=== PATIENT | female | born 1990 | race Caucasian/White ===

== ENCOUNTER 2016-12-31 01:25 | Inpatient (IN) | payer BC ==
[2016-12-31 02:21] VITALS: BMI 32.5
[2016-12-31] MEDS: ELECTROLYTE-148 SOLN 1,000 ML IV SCH ×2 (02:45→06:50)
[2016-12-31 03:15] LABS: BASOPHIL 0.2 % (0-2.0); EOSINOPHIL 0.9 % (0-4.5); MCH 31.5 pg (25.7-33.7); MCHC 33.7 g/dl (32.0-36.0); MEAN CELL VOLUME 93.5 fl (80-96); MEAN PLT VOLUME 8.3 fl (7.5-11.1); NEUTROPHILS 70.7 % (42.8-82.8); PLATELET COUNT 159 K/MM3 (134-434); RDW 13.1 % (11.6-15.6); WHITE BLOOD COUNT 9.5 K/mm3 (4.0-10.0)
[2016-12-31 03:27] LABS: INR 0.91 (0.82-1.09)
[2016-12-31 03:29] LABS: ACTIVATED PTT 26.8 SECONDS (26.9-34.4)
[2016-12-31] MEDS ORDERED: BUTORPHANOL TARTRATE 1 MG/ML VIAL IVPB ONE (03:30)
[2016-12-31] MEDS ORDERED: PROMETHAZINE HCL 25 MG/1 ML VIAL IVPB ONE (03:30)
[2016-12-31 03:33] LABS: CALCIUM 8.7 mg/dL (8.5-10.1); CREATININE 0.5 mg/dL (0.55-1.02)
[2016-12-31 03:49] LABS: HIV 1 & 2 AB NEGATIVE; HIV 1 AGp24 NEGATIVE
[2016-12-31] MEDS ORDERED: FENTANYL/BUPIVACAINE/NS/PF - PCEA - 50 ML DISP.SYRIN EP SCH (07:15)
[2016-12-31] MEDS ORDERED: OXYTOCIN 15 UNITS/ LR 250 ML 250 ML IVPB SCH (10:15)
[2016-12-31] MEDS ORDERED: DEXTROSE 5%-LACTATED RINGERS 1,000 ML IV SCH (10:15)
--- NOTE | 2016-12-31 10:21 | HP ---
Past Medical History - Primary Care Physician PCP:: Carson Stiles - Admission Chief Complaint: 26 yo P1 with at EGA 39w4d and SROM since 12:30am, admitted in spontaneous labor. History of Present Illness: Uncomplicated care. Vag GBS (-) History Source: Patient, Medical Record Limitations to Obtaining History: No Limitations - Past Medical History SURVEYOR HYDROGRAPHIC: No: Alzheimer's, CVA, Dementia, Migraine, Multiple Sclerosis, Peripheral Neuropathy, Parkinson's, Seizure, Syncope, TIA, Vertigo, Other Cardiovascular: No: AFIB, Aneurysm, Aortic Insufficiency, Aortic Stenosis, CAD, CHF, Deep Vein Thrombosis, HTN, Hyperlipdemia, VA, Mitral Insufficiency, Mitral Stenosis, Murmur, Pulmonary Hypertension, Other Pulmonary: No: Asthma, Bronchitis, Cancer, COPD, O2 Dependent, Pneumonia, Previously Intubated, Pulmonary Embolus, Pulmonary Fibrosis, Sleep Apnea, Other Gastrointestinal: No: Ascites, Cancer, Constipation, Crohn's Disease, Diverticulitis, Diverticulosis, Esophageal Varices, Gastritis, GERD, GI Bleed, Hemorrhoids, Hiatal Hernia, Inflamatory Bowel Disease, Irritable Bowel Disease, Pancreatitis, Peptic Ulcer Disease, Ulcerative Colitis, Other Hepatobiliary: No: Cirrhosis, Cholelithiasis, Cholecystitis, Choledocholithiasis , Hepatitis A, Hepatitis B, Hepatitis C, Other Renal/: No: Renal Failure, Renal Inusuff, BPH, Cancer, Hematuria, Hemodialysis , Neurogenic Bladder, Renal Calculi, UTI, Other Reproductive: No: Ectopic , Endometriosis, Fibroids, PID, Polycystic Ovary Syndrome, Postmenopausal, Other ...: 2 ...Para: 1 () ...Term: 1 ...: 0 ...Spon : 0 ...Induced : 0 ...Multiple Gestation: 0 ...LMP: 03/29/16 ... Weeks Gestation by Dates: 39.4 ...EDC by Dates: 01/03/17 ...EDC by Sono: 12/30/16 Heme/Onc: No: Anemia, B12 Deficiency, Bleeding Disorder, Cancer, Current Chemotherapy, Current Radiation Therapy, Hemochromatosis, Hypercoaguable State, Myeloproliferative Synd, Sickle Cell Disease, Sickle Cell Trait, Thrombocytopenia, Other Infectious Disease: No: AIDS, C-Diff, Herpes Zoster, HIV, MRSA, STD's, Tuberculosis, VREF, Other Psych: Yes: Anxiety Musculoskeletal: No: Bursitis, Chronic low back pain, Hemiparesis, Hemiplegia, Osteoarthritis, Paraplegia, Other Rheumatology: No: Fibromyalgia, Gout, Lupus, Rheumatoid Arthritis, Sarcoidosis, Vasculitis, Other ENT: No: Allergic Rhinitis, Sinusitis, Other Endocrine: No: Alan's Disease, Glendora's Disease, Diabetes Insipidus, Diabetes Mellitus, Hyperparathyroidism, Hyperthyroidism, Hypothyroidism, Osteopenia, SIADH, Other Dermatology: No: Basal Cell, Cellulitis, Eczema, Melanoma, Psoriasis, Squamous Cell, Other - Past Surgical History Past Surgical History: Yes: Tonsillectomy Hx Myomectomy: No Hx Transabdominal Cerclage: No - Smoking History Smoking history: Former smoker Have you smoked in the past 12 months: No - Alcohol/Substance Use Hx Alcohol Use: No History of Substance Use: reports: None - Social History Usual Living Arrangement: Yes: Alone ADL: Independent Occupation: Early intervention instructor History of Recent Travel: No Home Medications - Allergies Allergies/Adverse Reactions: Allergies Allergy/AdvReac Type Severity Reaction Status Date / Time No Known Allergies Allergy Verified 12/31/16 02:13 - Home Medications Home Medications: Ambulatory Orders Vitamins (Sjr) - 1 tab PO DAILY #0 tablet 06/23/15 Family Disease History - Family Disease History Family Disease History: CA: Grandparent (Endometrial) Review of Systems - Review of Systems Constitutional: reports: No Symptoms Eyes: reports: No Symptoms HENT: reports: No Symptoms Neck: reports: No Symptoms Cardiovascular: reports: No Symptoms Respiratory: reports: No Symptoms Gastrointestinal: reports: No Symptoms Genitourinary: reports: No Symptoms Breasts: reports: No Symptoms Reported Musculoskeletal: reports: No Symptoms Integumentary: reports: No Symptoms Neurological: reports: No Symptoms Endocrine: reports: No Symptoms Hematology/Lymphatic: reports: No Symptoms Psychiatric: reports: No Symptoms Pain Intensity: 0 (s/p Epidural) Physical Exam - Maternity Vital Signs: Vital Signs Temperature 98.9 F 12/31/16 09:42 Pulse Rate 96 H 12/31/16 09:05 Respiratory Rate 18 12/31/16 09:05 Blood Pressure 101/59 12/31/16 09:05 O2 Sat by Pulse Oximetry (%) 98 12/31/16 09:05 Constitutional: Yes: Well Nourished, No Distress, Calm Eyes: Yes: WNL, Conjunctiva Clear HENT: Yes: WNL, Atraumatic, Normocephalic Neck: Yes: WNL, Supple, Trachea Midline Cardiovascular: Yes: WNL, Regular Rate and Rhythm Lungs: Clear to auscultation, Normal air movement - Abdominal Exam/OB Fundal Height: 39 Number of Fetuses: Single Presentation: Vertex Contractions: Yes Regularity: Irregular (q5-7min) Intensity: Mild/Mod Monitor Mode: External Heart Rate (range): 160 Heart Rate Location: Midline Category: II Accelerations: Non-Uniform Decelerations: Variable - Vaginal Exam/OB Vaginal Bleediing: No Speculum Exam: No Dilatation (cm): 4 Effacement (%): 90 Amniotic Membrane Status: Leaking Amniotic Fluid: Yes: Clear Presentation: Vertex/Position Station: -1 (Adequate gynecoid pelvimetry) - Physical Exam Musculoskeletal: Yes: WNL Extremities: Yes: WNL Edema: Yes Edema: LLE: Trace, RLE: Trace Integumentary: Yes: WNL Deep Tendon Reflex Grade: Normal +2 ...Motor Strength: WNL Psychiatric: Yes: WNL, Alert, Oriented - Labs Lab Results: CBC, BMP 12/31/16 02:45 12/31/16 02:45 Hemorrhage Risk Assessment - Risk Factors Medium Risk Factors: Yes: None High Risk Factors: Yes: None Risk Score: 1 Risk Level: Medium Risk Imaging - Results Ultrasound: Report Reviewed Assessment/Plan 26 yo P1 with at EGA 39w4d and SROM since 12:30am, admitted in spontaneous labor. The RN exam at 7:15am was 4cm of cervical dilation and is still the same now. Arrest of dilation was diagnosed. Plan to augment contractions with Pitocin. Fetus does not require intervention. Monitor labor progress.
[2016-12-31] MEDS ORDERED: WITCH HAZEL 50% (TUCKS) 40 PAD/JAR PAD TP PRN (14:42)
[2016-12-31] MEDS ORDERED: METHYLERGONOVINE MALEATE 0.2 MG/1 ML AMP IM PRN (14:42)
[2016-12-31] MEDS ORDERED: BENZOCAINE 20% 57 GM BOTTLE TP PRN (14:42)
[2016-12-31] MEDS ORDERED: BENZOCAINE 28 GM HEMORRHOIDAL OINTMENT TP PRN (14:42)
[2016-12-31] MEDS ORDERED: BISACODYL 10 MG SUPP.RECT RC PRN (14:42)
[2016-12-31] MEDS ORDERED: D5W-LR W/ 20 UNITS OXYTOCIN 1,000 ML IV SCH (14:45)
--- NOTE | 2016-12-31 14:57 | PN ---
Delivery - Delivery Vaginal Delivery: No Problems, Spontaneous Type of Anesthesia: Epidural Episiotomy/Laceration: None EBL (cc): 300 Delivery, Single - Stages of Labor Date 1st Stage Initiatied: 12/31/16 Time 1st Stage Initiated: 01:00 Date 2nd Stage Initiated: 12/31/16 Time 2nd Stage Initiated: 13:45 Date of Delivery: 12/31/16 Time of Delivery: 14:10 Date Placenta Delivered: 12/31/16 Time Placenta Delivered: 14:15 Placenta: Yes: Spontaneous, Normal Configuration - Condition of Infant Va Underwriter/Park Maintenance Technician Present: No Gender: Male Position: Right, OA Total Hours ROM (Hrs/Mins): 13 hours 45 minutes - 1 Minute Total Score: 9 5 Minutes Total Score: 9 - Feeding Plan Initial Plan: Exclusive throughout hospitalization Remarks - Remarks Remarks: Normal labor and delivery
[2017-01-01 08:52] LABS: BASOPHIL 0.1 % (0-2.0); EOSINOPHIL 1.3 % (0-4.5); MCH 31.6 pg (25.7-33.7); MCHC 33.6 g/dl (32.0-36.0); MEAN CELL VOLUME 94.1 fl (80-96); MEAN PLT VOLUME 8.3 fl (7.5-11.1); NEUTROPHILS 73.7 % (42.8-82.8); PLATELET COUNT 142 K/MM3 (134-434); RDW 13.8 % (11.6-15.6); WHITE BLOOD COUNT 9.6 K/mm3 (4.0-10.0)
[2017-01-01] MEDS: PRENATAL VITAMINS W/ FOLIC ACID TABLET (FP) PO SCH (09:44)
--- NOTE | 2017-01-01 21:15 | PN ---
Post Progress Note - Subjective Subjective: No complaints Post Day: 1 Type of Delivery: Vital Signs: Vital Signs Temperature 98.2 F 01/01/17 20:51 Pulse Rate 86 01/01/17 20:51 Respiratory Rate 18 01/01/17 20:51 Blood Pressure 125/68 01/01/17 20:51 O2 Sat by Pulse Oximetry (%) 98 12/31/16 13:50 Breast Exam: Yes: Soft Uterus: Yes: Fundus Firm, Fundus below umbilicus, Non-tender Abdomen/GI: Yes: Abdomen soft, Passing flatus, Tolerating PO Lochia: Yes: Rubra Lochia, amount: Small Extremities: Yes: Calves non-tender Perineum: Yes: Intact Activity: Ambulating - Labs Labs: CBC WBC 9.6 K/mm3 (4.0-10.0) 01/01/17 07:50 RBC 3.43 M/mm3 (3.60-5.2) L 01/01/17 07:50 Hgb 10.8 GM/dL (10.7-15.3) 01/01/17 07:50 Hct 32.2 % (32.4-45.2) L 01/01/17 07:50 MCV 94.1 fl (80-96) 01/01/17 07:50 MCHC 33.6 g/dl (32.0-36.0) 01/01/17 07:50 RDW 13.8 % (11.6-15.6) 01/01/17 07:50 Plt Count 142 K/MM3 (134-434) 01/01/17 07:50 MPV 8.3 fl (7.5-11.1) 01/01/17 07:50 Neutrophils % 73.7 % (42.8-82.8) 01/01/17 07:50 Lymphocytes % 18.1 % (8-40) 01/01/17 07:50 Monocytes % 6.8 % (3.8-10.2) 01/01/17 07:50 Eosinophils % 1.3 % (0-4.5) 01/01/17 07:50 Basophils % 0.1 % (0-2.0) 01/01/17 07:50 Problem List - Problems (1) Normal vaginal delivery Assessment/Plan: 26yo P2 s/p , doing well stable, afebrile. care instructions reviewed. Continue routine care. Ambulation encouraged Discharge instruction reviewed. Code(s): O80 - ENCOUNTER FOR FULL-TERM UNCOMPLICATED DELIVERY
[2017-01-01] MEDS ORDERED: SENNOSIDES/DOCUSATE COMBO (SENNA PLUS) TABLET (UD) PO PRN (22:00)
[2017-01-01] MEDS: ACETAMINOPHEN 325 MG TABLET (FP) PO PRN (23:17)
[2017-01-01] MEDS: IBUPROFEN 600 MG TABLET (FP) PO PRN (23:18)
[2017-01-02 09:36] VITALS: BP 120/65; PULSE 85; TEMP 98.7
[2017-01-02] MEDS: PRENATAL VITAMINS W/ FOLIC ACID TABLET (FP) PO SCH (09:54)
[2017-01-02] MEDS: IBUPROFEN 600 MG TABLET (FP) PO PRN (09:55)
[2017-01-02] MEDS: ACETAMINOPHEN 325 MG TABLET (FP) PO PRN (09:56)
== END 2017-01-02 11:00 | disposition home or self-care (01) | DRG 775 ==
LOC: JLDR 01:25 → UNDOADMIN 01:25 → J3W 15:47
PROVIDERS: ADMIT Obstetrics & Gynecology; ATTEND Obstetrics & Gynecology
PROC: 10E0XZZ Delivery of Products of Conception, External Approach (ICD-10-PCS; principal; 2016-12-31)
DX: O80 Encounter for full-term uncomplicated delivery (principal); Z3A.39 39 weeks gestation of pregnancy; Z37.0 Single live birth
CPT/HCPCS: 36415; 59409; 80048; 85025; 85610; 85730; 86593; 86850; 86900; 86901; 87389

== ENCOUNTER 2017-10-11 21:43 | Emergency (ER) | payer BC ==
[2017-10-11 21:51] VITALS: TEMP 98.5; BMI 25.1
--- NOTE | 2017-10-11 21:51 | PDOC ---
Rapid Medical Evaluation Time Seen by Provider: 10/11/17 21:45 Medical Evaluation: Allergies Allergy/AdvReac Type Severity Reaction Status Date / Time No Known Allergies Allergy Verified 12/31/16 02:13 10/11/17 21:45 I have performed a brief in-person evaluation of this patient. The patient presents with a chief complaint of: pain to RUQ "right below ribs, with shooting to R neck/head" since this am, worsening with inspiration and supine position, +chills, +SOB, previously on OCP hasn't taken in 5 days, denies NVD Pertinent physical exam findings: HR 108, lungs CTAB I have ordered the following: cxr, ekg, urine preg, ua, uc The patient will proceed to the ED for further evaluation. Discharge Disposition - Referrals Referrals: Mercedes Gonsalez MD [Primary Care Provider] - - Patient Instructions - Post Discharge Activity
[2017-10-11 22:38] LABS: URINE APPEARANCE CLEAR; URINE BILIRUBIN NEGATIVE (NEGATIVE); URINE BLOOD NEGATIVE (NEGATIVE); URINE COLOR LTYELLOW; URINE GLUCOSE (UA) NEGATIVE (NEGATIVE); URINE KETONE NEGATIVE (NEGATIVE); URINE NITRITE NEGATIVE (NEGATIVE); URINE PROTEIN NEGATIVE (NEGATIVE); URINE UROBILINOGEN NEGATIVE mg/dL (0.2-1.0)
--- NOTE | 2017-10-11 23:31 | PDOC ---
History of Present Illness - General Chief Complaint: Chest Pain Stated Complaint: PAIN Time Seen by Provider: 10/11/17 21:45 - History of Present Illness Initial Comments: 10/12/17 02:39 Patient is a 27 year old female with no significant past medical history who presents to the ED with complaints of chest pain that began this morning. Patient reports chest pain began this morning at home while she was resting and is located on the R side of her chest, radiating up and down her R chest. Patient reports intermittent episodes of SOB, stating "she felt she could not exhale or inhale fully. She reports experiencing intermittent episodes of chills, subjective fever and generalized headache of gradual onset. In addition , she states she has bodyaches all over but more so on the R side. She reports having 2 children who have been sick on and off for the last 2 weeks. Patient reports her last menstrual period was 2 weeks ago and is on control, but states she has not been on it for the last 5 days because her insurance no longer covers it. Denies recent travel/immobility. Denies dysuria, constipation, diarrhea. Denies any trauma to affected area. Denies sore throat. Denies focal weakness/numbness , visual sxs, rashes. Allergies: None Social history: Lives with spouse and 2 children. Current smoker (3 cigarettes per day). No alcohol. No illicit drugs. Surgical history: Tonsillectomy (as child) PMD: Dr. Gonsalez Past History - Past Medical History Allergies/Adverse Reactions: Allergies Allergy/AdvReac Type Severity Reaction Status Date / Time No Known Allergies Allergy Verified 10/12/17 00:13 Home Medications: Ambulatory Orders Vitamins (Sjr) - 1 tab PO DAILY #0 tablet 06/23/15 Asthma: No Cancer: No Cardiac Disorders: No Diabetes: No HTN: No Seizures: No Thyroid Disease: No - Immunization History Immunization Up to Date: Yes - Suicide/Smoking/Psychosocial Hx Smoking History: Current every day smoker Have you smoked in the past 12 months: Yes Number of Cigarettes Smoked Daily: 3 Information on smoking cessation initiated: No 'Breaking Loose' booklet given: 06/03/14 Hx Alcohol Use: No Drug/Substance Use Hx: No Substance Use Type: None Hx Substance Use Treatment: No Review of Systems - Review of Systems Comments:: 10/12/17 02:46 GENERAL/CONSTITUTIONAL: +Chills. +Subjective fever. No weakness. HEAD, EYES, EARS, NOSE AND THROAT: No change in vision. No ear pain or discharge. No sore throat. GASTROINTESTINAL: No nausea, vomiting, diarrhea or constipation. GENITOURINARY: No dysuria, frequency, or change in urination. CARDIOVASCULAR: +Chest pain. +SOB RESPIRATORY: No cough, wheezing, or hemoptysis. MUSCULOSKELETAL: +bodyaches SKIN: No rash NEUROLOGIC: No headache, vertigo, loss of consciousness, or change in strength/ sensation. ENDOCRINE: No increased thirst. No abnormal weight change. HEMATOLOGIC/LYMPHATIC: No anemia, easy bleeding, or history of blood clots. ALLERGIC/IMMUNOLOGIC: No hives or skin allergy. *Physical Exam - Vital Signs Last Vital Signs Temp Pulse Resp BP Pulse Ox 98.5 F 108 H 20 142/86 98 10/11/17 21:45 10/11/17 21:45 10/11/17 21:45 10/11/17 21:45 10/11/17 21:45 - Physical Exam Comments: 10/12/17 02:39 GENERAL: Awake, alert, and fully oriented, in no acute distress HEAD: No signs of trauma EYES: PERRLA, EOMI, sclera anicteric, conjunctiva clear ENT: Auricles normal inspection, hearing grossly normal, nares patent, oropharynx clear without exudates. Moist mucosa NECK: Normal ROM, supple, no lymphadenopathy, JVD, or masses LUNGS: Breath sounds equal, clear to auscultation bilaterally. No wheezes, and no crackles HEART: Regular rate and rhythm, normal S1 and S2, no murmurs, rubs or gallops. ttp along entire R chest, HR 96 ABDOMEN: Soft, nontender, normoactive bowel sounds. No guarding, no rebound. No masses EXTREMITIES: Normal range of motion, no edema. No clubbing or cyanosis. No cords , erythema, or tenderness NEUROLOGICAL: Normal speech, cranial nerves intact, negative pronator drift, 5/ 5 strength in all 4 extremities, normal sensation to light touch in all 4 extremities, normal cerebellar exam, normal reflexes and tone SKIN: Warm, Dry, normal turgor, no rashes or lesions noted. Heart Score/ECG Review #1 10/12/17 02:50 Twelve-lead EKG was performed and reviewed by me. Sinus tachycardia rate 105. Normal axis and intervals. No ST elevations. ED Treatment Course - LABORATORY CBC & Chemistry Diagram: 10/12/17 00:03 10/12/17 00:03 - ADDITIONAL ORDERS Additional order review: Laboratory Results 10/11/17 22:28 Urine Color Ltyellow Urine Appearance Clear Urine pH 5.0 D Ur Specific Ragan 1.014 Urine Protein Negative Urine Glucose (UA) Negative Urine Ketones Negative Urine Blood Negative Urine Nitrite Negative Urine Bilirubin Negative Urine Urobilinogen Negative Urine HCG, Qual Negative Medical Decision Making - Medical Decision Making 10/12/17 01:40 27-year-old healthy female presents with multiple complaints including right- sided chest pain associated with chills, body aches, generalized headaches, subjective fevers. Vitals in triage remarkable for tachycardia to 108 however heart rate on my exam was in the 90s. Exam with tenderness to palpation to the right chest, otherwise unremarkable. Differential includes PE versus pleurisy versus viral syndrome vs MSK pain. Plan: -labs -UPT -CXR -toradol -dispo 10/12/17 02:43 UPT negative.Blood work unremarkable. Chest x-ray clear. Pain has almost completely resolved with fluids and Toradol, most likely consistent with body aches in the setting of a viral syndrome especially given sick contacts. I discussed the physical exam findings, ancillary test results and final diagnoses with the patient. I answered all of the patient's questions. The patient was satisfied with the care received and felt comfortable with the discharge plan and treatment plan. The patient will call their primary care physician within 24 hours to arrange follow-up and will return to the Emergency Department with any new, persistent or worsening symptoms. *DC/Admit/Observation/Transfer Diagnosis at time of Disposition: Viral syndrome - Discharge Dispostion Disposition: HOME Condition at time of disposition: Stable Admit: No - Referrals Referrals: Mercedes Gonsalez MD [Primary Care Provider] - - Patient Instructions Printed Discharge Instructions: DI for Chest Pain Additional Instructions: Please follow up with your primary care doctor in 1-2 days. Return to the emergency department if you have any new, worsening, or concerning symptoms. - Post Discharge Activity - Attestations Physician Attestion: 10/12/17 02:47 I, Dr. Starr Loving MD, attest that this document has been prepared under my direction and personally reviewed by me in its entirety. I further attest, that it accurately reflects all work, treatment, procedures and medical decision -making performed by me.
[2017-10-11] MEDS ORDERED: SODIUM CHLORIDE 0.9% 500 ML INFUS.BAG IV ONE (23:58)
[2017-10-11] MEDS ORDERED: KETOROLAC TROMETHAMINE 15 MG/ML VIAL IVPUSH ONE (23:58)
[2017-10-12 00:14] LABS: BASOPHIL 0.3 % (0-2.0); EOSINOPHIL 0.5 % (0-4.5); MCH 31.2 pg (25.7-33.7); MCHC 33.3 g/dl (32.0-36.0); MEAN CELL VOLUME 93.6 fl (80-96); MEAN PLT VOLUME 8.1 fl (7.5-11.1); NEUTROPHILS 80.6 % (42.8-82.8); PLATELET COUNT 195 K/MM3 (134-434); RDW 13.4 % (11.6-15.6); WHITE BLOOD COUNT 7.2 K/mm3 (4.0-10.0)
[2017-10-12 00:37] LABS: ALBUMIN 3.6 g/dl (3.4-5.0); ANION GAP 10 (8-16); BILIRUBIN,TOTAL 0.6 mg/dL (0.2-1.0); CALCIUM 8.3 mg/dL (8.5-10.1); CO2 26 mmol/L (21-32); CREATININE 0.7 mg/dL (0.55-1.02); GLUCOSE,RANDOM 107 mg/dL (74-106); SGPT/ALT 15 U/L (12-78); TOT PROT 6.8 g/dl (6.4-8.2)
[2017-10-12 00:39] LABS: ALK PHOS 51 U/L (45-117); TROPONIN I < 0.02 ng/ml (0.00-0.05)
[2017-10-12] MEDS ORDERED: KETOROLAC TROMETHAMINE 30 MG/1 ML VIAL ONE (00:42)
[2017-10-12 00:44] LABS: SGOT/AST 4 U/L (15-37)
[2017-10-12 02:53] VITALS: BP 98/57; PULSE 80
[2017-10-12 10:29] LABS: URINE LEUK ESTERASE Negative (NEGATIVE)
--- NOTE | 2017-10-12 11:06 | EKG ---
Test Reason : Blood Pressure : / mmHG Vent. Rate : 105 BPM Atrial Rate : 105 BPM P-R Int : 166 ms QRS Dur : 076 ms QT Int : 314 ms P-R-T Axes : 028 034 034 degrees QTc Int : 415 ms SINUS TACHYCARDIA LOW VOLTAGE QRS T WAVE ABNORMALITY, CONSIDER ANTERIOR ISCHEMIA ABNORMAL ECG NO PREVIOUS ECGS AVAILABLE Confirmed by MARGOT NESS, STEPHANIE ([id number]) on 10/12/2017 11:06:33 AM Referred By: Confirmed By:STEPHANIE FROST MD
== END 2017-10-12 03:25 | disposition home or self-care (01) ==
LOC: JER 21:43
PROC: 3E033GC Introduction of Other Therapeutic Substance into Peripheral Vein, Percutaneous Approach (ICD-10-PCS; principal; 2017-10-11)
DX: B34.9 Viral infection, unspecified (principal)
CPT/HCPCS: 36415; 71020-TC; 80053; 81003; 83690; 83735; 84443; 84484; 84703; 85025; 85379; 87086; 93005; 93010; 99283-25

== ENCOUNTER 2023-07-24 12:15 | Inpatient (IN) | payer BC ==
[2023-07-24] MEDS ORDERED: OXYTOCIN 30 UNITS in 0.9% NS 30 UNIT/500 ML INFUS.BAG IVPB SCH (13:30)
[2023-07-24] MEDS ORDERED: AMPICILLIN - 2 GM in SODIUM CHLORIDE 100 ML IVPB ONE (13:30)
[2023-07-24] MEDS ORDERED: AMPICILLIN SODIUM 2 GM VIAL ONE (13:41)
[2023-07-24] MEDS: ELECTROLYTE-148 SOLN 1,000 ML IV SCH ×2 (14:00→17:10)
[2023-07-24] MEDS ORDERED: OXYTOCIN 30 UNITS in 0.9% NS 30 UNIT/500 ML INFUS.BAG IVPB ONE (14:31)
[2023-07-24 15:01] LABS: BASO % 0.1 % (0-2.0); EOS % 0.9 % (0-4.5); HEMATOCRIT 34.4 % (32.4-45.2); HEMOGLOBIN 11.6 GM/dL (10.7-15.3); LYMPH % 24.7 % (8-40); MCH 31.3 pg (25.7-33.7); MCHC 33.7 g/dl (32.0-36.0); MEAN CELL VOLUME 92.9 fl (80-96); MEAN PLT VOLUME 8.4 fl (7.5-11.1); MONO % 7.8 % (3.8-10.2); NEUT % 66.5 % (42.8-82.8); PLATELET COUNT 149 10^3/uL (134-434); RDW 13.6 % (11.6-15.6); WHITE BLOOD COUNT 6.9 K/mm3 (4.0-10.0)
[2023-07-24 15:09] LABS: INR 0.91 (0.83-1.09); PROTHROMBIN TIME (PATIENT) 10.6 SEC (9.7-13.0)
[2023-07-24 15:11] LABS: ACTIVATED PTT 24.9 SECONDS (25.2-36.5)
[2023-07-24 15:28] LABS: BLOOD UREA NITROGEN 6.3 mg/dL (7-18)
[2023-07-24 15:31] LABS: CREATININE 0.5 mg/dL (0.55-1.3)
[2023-07-24] MEDS ORDERED: NALOXONE HCL 0.4 MG/ML VIAL IVPUSH PRN (16:28)
[2023-07-24] MEDS ORDERED: FENTANYL/BUPIVACAINE/NS/PF - PCEA - 50 ML DISP.SYRIN EP SCH (16:30)
[2023-07-24] MEDS ORDERED: FENTANYL/BUPIVACAINE/NS/PF - PCEA - 50 ML DISP.SYRIN EP ONE (16:33)
[2023-07-24] MEDS ORDERED: FENTANYL CITRATE/PF 50 MCG/ML VIAL ONE (16:34)
[2023-07-24] MEDS ORDERED: AMPICILLIN SODIUM 1 GM VIAL ONE (17:39)
[2023-07-24] MEDS: AMPICILLIN - 1 GM in SODIUM CHLORIDE 100 ML IVPB SCH ×2 (17:46→18:18)
[2023-07-24 18:10] VITALS: BMI 32.0
[2023-07-24] MEDS ORDERED: LIDOCAINE HCL 1% PRESERVATIVE FREE - 30ML VIAL ONE (19:16)
[2023-07-24] MEDS ORDERED: OXYTOCIN 20 UNITS in 0.9% NS 20 UNIT/1,000 ML INFUS.BAG IV ONE (19:16)
[2023-07-24] MEDS ORDERED: BENZOCAINE 20% 57 GM BOTTLE TP PRN (20:01)
[2023-07-24] MEDS ORDERED: BISACODYL 10 MG SUPP.RECT RC PRN (20:01)
[2023-07-24] MEDS ORDERED: BENZOCAINE 28 GM HEMORRHOIDAL OINTMENT TP PRN (20:01)
[2023-07-24] MEDS ORDERED: WITCH HAZEL 50% (TUCKS) 40 PAD/JAR PAD TP PRN (20:01)
[2023-07-24] MEDS ORDERED: ACETAMINOPHEN 325 MG TABLET (FP) PO PRN (20:01)
[2023-07-24] MEDS ORDERED: METHYLERGONOVINE MALEATE 0.2 MG/1 ML AMP IM PRN (20:01)
[2023-07-24] MEDS ORDERED: oxyCODONE HCL 5 MG TABLET PO PRN (20:01)
[2023-07-24] MEDS ORDERED: OXYTOCIN 20 UNITS in 0.9% NS 20 UNIT/1,000 ML INFUS.BAG IV SCH (20:15)
[2023-07-25] MEDS: IBUPROFEN 600 MG TABLET (FP) PO PRN ×2 (02:02→16:23)
[2023-07-25] MEDS ORDERED: METHYLERGONOVINE MALEATE 0.2 MG/1 ML AMP IM ONE (04:00)
[2023-07-25 04:41] LABS: BASO % 0.2 % (0-2.0); EOS % 0.7 % (0-4.5); HEMATOCRIT 35.5 % (32.4-45.2); LYMPH % 22.9 % (8-40); MCH 31.4 pg (25.7-33.7); MCHC 33.7 g/dl (32.0-36.0); MEAN CELL VOLUME 93.2 fl (80-96); MEAN PLT VOLUME 9.2 fl (7.5-11.1); MONO % 7.6 % (3.8-10.2); NEUT % 68.6 % (42.8-82.8); PLATELET COUNT 113 10^3/uL (134-434); RBC 3.81 M/mm3 (3.60-5.2); RDW 13.7 % (11.6-15.6); WHITE BLOOD COUNT 9.8 K/mm3 (4.0-10.0)
[2023-07-25 08:16] LABS: BASO % 0.1 % (0-2.0); EOS % 0.7 % (0-4.5); HEMATOCRIT 35.6 % (32.4-45.2); HEMOGLOBIN 12.1 GM/dL (10.7-15.3); LYMPH % 21.7 % (8-40); MCH 31.8 pg (25.7-33.7); MEAN CELL VOLUME 93.4 fl (80-96); MEAN PLT VOLUME 8.8 fl (7.5-11.1); MONO % 7.6 % (3.8-10.2); NEUT % 69.9 % (42.8-82.8); PLATELET COUNT 105 10^3/uL (134-434); RBC 3.82 M/mm3 (3.60-5.2); RDW 13.8 % (11.6-15.6); WHITE BLOOD COUNT 9.1 K/mm3 (4.0-10.0)
[2023-07-25] MEDS: PRENATAL VITAMINS W/ FOLIC ACID TABLET (FP) PO SCH (09:28)
[2023-07-25] MEDS ORDERED: SENNOSIDES/DOCUSATE COMBO (SENNA PLUS) TABLET (UD) PO PRN (22:00)
[2023-07-26] MEDS: PRENATAL VITAMINS W/ FOLIC ACID TABLET (FP) PO SCH (09:17)
[2023-07-26 10:41] VITALS: BP 102/63; PULSE 76; RESP 17; TEMP 98
== END 2023-07-26 13:00 | disposition home or self-care (01) | DRG 807 ==
LOC: JDEL 12:15 → JLDR 13:15 → J3W 21:55
PROVIDERS: ADMIT Obstetrics & Gynecology; ATTEND Obstetrics & Gynecology
PROC: 10E0XZZ Delivery of Products of Conception, External Approach (ICD-10-PCS; principal; 2023-07-24)
DX: O99.824 Streptococcus B carrier state complicating childbirth (principal); Z3A.39 39 weeks gestation of pregnancy; Z37.0 Single live birth
CPT/HCPCS: 36415; 59025; 80048; 85025; 85610; 85730; 86780; 86850; 86900; 86901